=== PATIENT | male | born 1985 | race Caucasian/White ===

== ENCOUNTER 2025-03-27 18:30 | Observation (INO) | payer OTHER, BC, SELFPAY ==
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
--- OUTSIDE RECORDS SUMMARY | 2025-03-27 18:32 | XMS_ITS | Clinical Summary ---
Author Organization [facility] Address [address] [place] [id number] Care Team Providers Care Political Science Research Assistant Name Role Phone None Primary Care Provider Unavailabl e Allergies Active Allergy Reactions Criticality Noted Date Comments Sulfa (Sulfonamide Antibiotics) Other - Describe In Comment Field Medium 02/05/2018 Skin turns white and crusty, then sheds Medications etodolac (LODINE) 200 mg capsule Take 1 capsule by mouth 2 times daily if needed. 0 8 Active multivitamin (MVI) tablet Take 1 tablet by mouth once daily. 0 8 Active methocarbamol (ROBAXIN) 500 mg tablet Take 1 tablet by mouth once daily in the evening. 0 8 Active buPROPion (WELLBUTRIN XL) 300 mg Extended-Release tablet Take 1 tablet by mouth once daily. 0 8 Active prazosin (MINIPRESS) 2 mg capsule Take 1 capsule by mouth at bedtime. 0 8 Active cholecalciferol (VITAMIN D) 1,000 unit capsule Take 1 capsule by mouth once daily. 0 8 Active sildenafil citrate (VIAGRA) 100 mg tablet Take 1 tablet by mouth once daily if needed for Erectile Dysfunction. Take 30min to 4 hours before sexual activity. Max 100mg/24hr. 10 tablet 11 8 Active diazePAM (VALIUM) 5 mg tabletIndications: Consultation for sterilization 30-60 mins before before procedure 1 tablet 9 Active Active Problems No known active problems Immunizations Immunization Administration Dates Next Due Tdap 04/14/2016 Social History Tobacco Use Types Packs/Day Years Used Date Smoking Tobacco: Never Smokeless Tobacco: Never Tobacco Cessation:Counseling Given: Yes Alcohol Use Standard Drinks/Week Comments Yes 2 (1 standard drink = 0.6 oz pur e alcohol) PHQ-2 Answer Date Recorded PHQ-2 Score 2 03/08/2019 Sex and Gender Information Value Date Recorded Sex Assigned at Not on file Legal Sex Male 5:22 AM [employer] Gender Identity Not on file Sexual Orientation Not on file Obstetrics History Last Filed Vital Signs Vital Sign Reading Time Taken Comments Blood Pressure 124/68 05/03/2019 3:36 PM CDT Pulse 95 03/16/2023 9:30 PM CDT Temperature 36.7 C (98.1 F) 03/16/2023 9:30 PM CDT Respiratory Rate 16 03/16/2023 9:30 PM CDT Oxygen Saturation 97% 03/16/2023 9:30 PM CDT Inhaled Oxygen Concentration - - Weight 121.7 kg (268 lb 4.8 oz) 03/16/2023 9:30 PM CDT Height 188 cm (6' 2) 03/16/2023 9:30 PM CDT Body Mass Index 34.45 03/16/2023 9:30 PM CDT Plan of Treatment Health Maintenance Due Date Last Done Comments HIV for age 15-65 1998 Hepatitis C screening for age 18-79 2001 Hepatitis B series for 19+ (1 of 3 - 19+ 3-dose series) 2002 Lipids for age 35-44 2018 Depression screening for age 12+ 03/08/2020 03/08/2019, 02/05/2018 BMI (ht and wt on same day) for age 18+ 05/03/2020 05/03/2019, 04/05/2019, 03/08/2019, Additional history exists COVID-19 vaccine series ( season) 2024 Influenza Vaccine (#1) 2025 Tetanus booster 04/14/2026 04/14/2016 Pneumococcal series for age 6-49 Aged Out No longer eligible based on patient's age to complete this topic Care Teams Political Science Research Assistant Relationship Specialty Start Date End Date None . PCP - General 03/16/23
[2025-03-27 18:48] VITALS: BP 142/80; PULSE 84; RESP 20; TEMP 36.4; O2SAT 99; BMI 33.6
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
[2025-03-27] MEDS: IBUPROFEN 200 MG TABLET 600 MG PO (19:31)
--- OUTSIDE RECORDS SUMMARY | 2025-03-27 20:04 | XMS_ITS | Continuity of Care Document ---
Author Name [facility] Organization [facility] Care Team Providers Care Automotive Heavy Mechanic Name Role Phone [facility] Unavailable Unavailable Problems Combined list of problems from Department of Defense and Veterans Affairs facilities. It does not include entries that were removed or entered in error. Problem Status Onset Date Problem Type Date of Resolution Comments Source Exposure to potentially hazardous substance ([facility] [id number]) Active 10/18/19 24 Condition Oct 18, 2023 Entered By: REFUGIO BANDA Comment: [facility] BRANDY Documentation Initiative [facility] Sacrococcygeal disorders, not elsewhere classified Inactive 09/02/19 17 Condition [facility] Low back pain Inactive 07/21/20 16 Condition [facility] Bilateral foot joint pain Active Condition [facility] Bilateral knee pain Active Condition [facility] Cervical pain Active Condition [facility] Depression ([facility] [id number]) Active Condition [facility] GERD - Gastro-Esophageal Reflux Disease ([facility] [id number]) Active Condition [facility] H/O: vasectomy Active Condition [facility] History of male erectile disorder Active Condition [facility] Low back pain Active Condition [facility] OIF EXPOSURE TO BURN PIT SMOKE Active Condition [facility] OIF EXPOSURE TO DEPLETED URANIUM Active Condition [facility] OIF EXPOSURE TO LYRIC-8 FUEL Active Condition [facility] OIF EXPOSURE TO SANDSTORMS AND DUSTSTORMS Active Condition [facility] PTSD - Post-traumatic stress disorder Active Condition [facility] Screening for other specified conditions (ICD-9-CM V82.89) Active Condition [facility] ([facility]) Shoulder: arthralgia * (ICD-9-CM 719.41) Active Condition [facility] ([facility]) joint pain, localized in the knee Active Condition [facility] TENSION-TYPE HEADACHE Inactive Condition [facility] joint pain in both knees Active Condition DoD NO PSYCHIATRIC DIAGNOSIS ON AXIS III Active Condition [facility] NO PSYCHIATRIC DIAGNOSIS ON AXIS II Active Condition [facility] visit for: services physical Active Condition [facility] ARTHROPATHY SHOULDER REGION Active Condition [facility] DoD SHOULDER SPRAIN Inactive Condition SHOULDER SPRA IN DoD Diagnosis: ICD-10-CM K21.9 Gastro-esophageal reflux disease without esophagitis Active Diagnosis [facility] Medications Combined list of outpatient medications from [facility] and [facility] facilities.Medications provided include 1) outpatient medications from the last 15 months, and 2) patient-reported medications. Medication Details Route Status Patient Instructions Prescription Expires Prescription Number Last Dispense Date Ordering Provider Order Date Order Qty Source BUPROPION HCL 150MG 24HR TAB,SA TAKE THREE TABLETS BY MOUTH EVERY MORNING FOR PTSD ORAL 01/25/2025 [id number] [facility] [address] [facility] CHOLECALCIF MAREK 25MCG (1,000UNIT) TAB TAKE TWO TABLETS BY MOUTH EVERY DAY ORAL ACTIVE SOTOHIRAL Castro [address] [facility] MARINE LIPID (FISH OIL) CAP,ORAL TAKE BY MOUTH EVERY DAY ORAL ACTIVE SOTOHIRAL 2016 [facility] MULTIVITAMI NS CAP/TAB TAKE ONE TABLET BY MOUTH EVERY DAY ORAL ACTIVE SOTOHIRAL [facility] [address] [facility] OMEPRAZOLE 20MG CAP,EC TAKE ONE CAPSULE BY MOUTH EVERY DAY ON AN EMPTY STOMACH, AT LEAST 30 MINUTES PRIOR TO A MEAL ORAL 01/25/2025 [id number] [facility] [address] [facility] PRAZOSIN HCL 2MG CAP TAKE TWO CAPSULES BY MOUTH AT BEDTIME FOR NIGHTMAR ES, NIGHTSWE ATS ORAL 01/25/2025 [id number] ZONIALILIAN PENA [address] [facility] SILDENAFIL CITRATE 100MG TAB TAKE ONE TABLET BY MOUTH NEEDED FOR ERECTION -TAKE 1 HOUR BEFORE ANTICIPA BALDEMAR SEXUAL ACTIVITY ORAL 01/25/2025 [id number] LILIAN BRAR [address] [facility] Allergies, Adverse Reactions, Alerts Combined list of allergies from [facility] and [facility] facilities. It does not include entries that were removed or entered in error. Substance Category Reaction Severity Reaction type Status Date Reported Comments Source SULFA (SULFONAMI DE ANTIBIOTIC S) {Cla } Drug allergy (disorder) Skin irritation active 6 [facility] [place] SULFA DRUGS Propensity to adverse reactions to drug (finding) active 7 [facility] Immunizations Combined list of available immunizations from the Department of Defense and Veterans Affairs facilities. Immunization Series Date Given Administered By Site Reaction Lot Number CVX Code Drug Senior Living Advisor Status Comments Source COVID-19 (MODERNA), MRNA, LNP-S, PF, 100 MCG/0.5 ML DOSE [address] [facility] COVID-19 (MODERNA), MRNA, LNP-S, PF, 100 MCG/0.5 ML DOSE 1 [address] [facility] INFLUENZA, SEASONAL, INJECTABLE 2017 141 complet ed [facility] TDAP 2017 115 complet [facility] INFLUENZA, SEASONAL, INJECTABLE [address] [facility] anthrax vaccine 4 2015 [id number] [employer] [place] ([facility]) complet ed anthrax vaccine [facility] hepatitis B vaccine, adult dosage 4 2015 [id number] SmithKline (SKB) complet ed hepatitis B vaccine, adult dosage [facility] typhoid Vi capsular polysaccharid e vaccine 1 2015 [id number] Sanofi Pasteur (PMC) complet ed typhoid Vi capsular polysacch aride vaccine [facility] Influenza, seasonal, injectable, preservative free 1 2015 [id number] 140 Sanofi Pasteur (PMC) complet ed Influenza , seasonal, injectabl e, preservat kimberly free DoD TDAP 2015 115 complet ed HISTORICA L INFORMATI ON - FROM OTHER REGISTRY, [facility] measles, mumps and rubella virus vaccine 2 2015 [id number] SmithKline (SKB) complet ed measles, mumps and rubella virus vaccine DoD varicella virus vaccine 1 2015 [id number] 21 Unknown (UNK) comple t ed varicella virus vaccine [facility] Influenza, seasonal, injectable, preservative free 1 2014 [id number] 140 [employer] (CS) complet ed Influenza , seasonal, injectabl e, preservat kimberly free DoD Influenza, seasonal, injectable, preservative free 1 2013 [id number] 140 Novartis itravel. (NOV) complet ed Influenza , seasonal, injectabl e, preservat kimberly free DoD Influenza, seasonal, injectable, preservative free 1 2012 [id number] 140 Unknown (UNK) comple t ed Influenza , seasonal, injectabl e, preservat kimberly free DoD Influenza, seasonal, injectable, preservative free 1 2011 [id number] [facility] BetterWorks (Closed)apies, Inc. (CSL) complet ed Influenza , seasonal, injectabl e, preservat kimberly free DoD tetanus toxoid, reduced diphtheria toxoid, and acellular pertu is vaccine, adsorbed 1 2011 [id number] 115 Unknown (UNK) complet ed tetanus toxoid, reduced diphtheri a toxoid, and acellular pertussis vaccine, adsorbed DoD Influenza, seasonal, injectable 1 2010 [id number] 141 Sanofi Pasteur (PMC) complet ed Influenza , seasonal, injectabl e DoD Novel influenza-H1N 1-09, injectable 1 2009 [id number] 127 Nouveaux Riche. (NOV) complet ed Novel influenza -Z1G3-32, injectabl e DoD Novel influenza-H1N 1-09, injectable 1 2009 [id number] 127 Unknown (UNK) complet ed Novel influenza -Z2V3-69, injectabl e DoD influenza virus vaccine, live, attenuated, for intranasal use 1 2008 [id number] 111 MedImmune, Inc. (MED) complet ed influenza virus vaccine, live, attenuate d, for intranasa l use DoD influenza virus vaccine, split virus (incl. purified surface antigen)-reti red CODE 1 2008 [id number] 15 [facility] (SKB) complet ed influenza virus vaccine, split virus (incl. purified surface antigen)- retired CODE DoD influenza virus vaccine, live, attenuated, for intranasal use 1 2006 [id number] 111 MedIInuvo, Inc. (MED) complet ed influenza virus vaccine, live, attenuate d, for intranasa l use DoD anthrax vaccine 3 2006 [id number] 24 [employer] [place] ([facility]) complet ed anthrax vaccine DoD anthrax vaccine 2 2006 [id number] 24 Unknown (UNK) comple t ed anthrax vaccine DoD influenza virus vaccine, split virus (incl. purified surface antigen)-reti red CODE 1 2005 UNK 15 Unknown (UNK) comple t ed influenza virus vaccine, split virus (incl. purified surface antigen)- retired CODE DoD vaccinia (smallpox) vaccine 1 2005 [id number] 75 Perea (AB) complet ed vaccinia (smallpox ) vaccine DoD anthrax vaccine 1 2005 [id number] 24 [employer] [place] ([facility]) complet ed anthrax vaccine DoD typhoid Vi capsular polysaccharid e vaccine 1 [id number] Sanofi Pasteur ([facility]) complet ed typhoid Vi capsular polysacch aride vaccine DoD hepatitis A vaccine, adult dosage 2 2004 [id number] 52 Unknown (UNK) comple t ed hepatitis A vaccine, adult dosage DoD hepatitis B vaccine, adult dosage 3 2004 [id number] 43 Unknown (UNK) comple t ed hepatitis B vaccine, adult dosage DoD influenza virus vaccine, live, attenuated, for intranasal use 1 2004 [id number] 111 Unknown (UNK) comple t ed influenza virus vaccine, live, attenuate d, for intranasa l use DoD hepatitis B vaccine, adult dosage 2 2004 [id number] 43 Unknown (UNK) comple t ed hepatitis B vaccine, adult dosage DoD hepatitis B vaccine, pediatric or pediatric/ado lescent dosage 1 2004 TWIN/AH [id number] 08 Unknown (UNK) complet ed hepatitis B vaccine, pediatric or pediatric /adolesce nt dosage DoD hepatitis A vaccine, adult dosage 1 2004 TWIN/AH ABB 52 Unknown (UNK) complet ed hepatitis A vaccine, adult dosage DoD influenza virus vaccine, split virus (incl. purified surface antigen)-reti red CODE 1 2002 [id number] 15 Sanofi Pasteur ([facility]) complet ed influenza virus vaccine, split virus (incl. purified surface antigen)- retired CODE DoD influenza virus vaccine, split virus (incl. purified surface antigen)-reti red CODE 0 2001 [id number] 15 Dioni (ELIZABETH) complet ed influenza virus vaccine, split virus (incl. purified surface antigen)- retired CODE DoD measles, mumps and rubella virus vaccine 0 2001 [id number] 03 Unknown (UNK) comple t ed measles, mumps and rubella virus vaccine DoD tetanus and diphtheria toxoids, adsorbed, preservative free, for adult use (2 Lf of tetanus toxoid and 2 Lf of diphtheria toxoid) 0 2001 [id number] 09 Unknown (UNK) comple t ed tetanus and diphtheri a toxoids, adsorbed, preservat kimberly free, for adult use (2 Lf of tetanus toxoid and 2 Lf of diphtheri a toxoid) DoD poliovirus vaccine, inactivated 0 2001 [id number] 10 Unknown (UNK) comple t ed polioviru s vaccine, inactivat ed DoD meningococcal polysaccharid e vaccine (MPSV4) 0 2001 [id number] 32 Unknown (UNK) comple t ed meningoco ccal polysacch aride vaccine (MPSV4) DoD Results Combined list of recent chemistry, hematology and other laboratory results from Department of Defense and Veterans Affairs, ranging from 15 months to all on record, depending upon the facility. Order Name Results Value Reference Range Date Interpretation Specimen Comments Source HEMOGLOBI N A1C HEMOGLOBIN A1C/HEMOGLO BIN.TOTAL IN BLOOD 5.4 4.0 - 6.0 01/24 Specimen Type: BLOOD Comment: Values obtained from A1C measurement s can vary. For typical A1C assays, a reported value of 7.0 could actually be between 6.7 and 7.3 if measured by a reference method. A reported value of 9.0 could actually be between 8.7 and 9.3. Ref: http://www. ngsp.org/[place] Pdata.asp Ordering Provider: OSWALD BRAR Report Released Date/Time: December 16, 2022 12:33 PM Reporting Lab: [facility] [phone] Performing Lab: [facility] [address] [place] [facility] BASIC METABOLIC PANEL+MG CREATININE [MASS/VOLUM E] IN SERUM OR PLASMA 1.0 mg/dL 0.7 - 1.2 01/24 Specimen Type: PLASMA No comment entered. Ordering Provider: OSWALD BRAR Report Released Date/Time: December 16, 2022 12:33 PM Reporting Lab: [facility] [phone] Performing Lab: [facility] [address] [place] [facility] BASIC METABOLIC PANEL+MG UREA NITROGEN [MASS/VOLUM E] IN SERUM OR PLASMA 18 mg/dL 8 - 26 01/24 Specimen Type: PLASMA No comment entered. Ordering Provider: OSWALD BRAR Report Released Date/Time: December 16, 2022 12:33 PM Reporting Lab: [facility] [phone] Performing Lab: [facility] [address] [place] [facility] BASIC METABOLIC PANEL+MG GLUCOSE [MASS/VOLUM E] IN SERUM OR PLASMA 76 mg/dL 70 - 100 01/24 Specimen Type: PLASMA No comment entered. Ordering Provider: OSWALD BRAR Report Released Date/Time: December 16, 2022 12:33 PM Reporting Lab: [facility] [address] Performing Lab: [facility] [address] [place] [facility] BASIC METABOLIC PANEL+MG SODIUM [MOLES/VOLU ME] IN SERUM OR PLASMA 140 mmol/L 136 - 145 01/24 Specimen Type: PLASMA No comment entered. Ordering Provider: OSWALD BRAR Report Released Date/Time: December 16, 2022 12:33 PM Reporting Lab: [facility] [phone] Performing Lab: [facility] [address] [place] [facility] BASIC METABOLIC PANEL+MG POTASSIUM [MOLES/VOLU ME] IN SERUM OR PLASMA 3.8 mmol/L 3.5 - 5.1 01/24 Specimen Type: PLASMA No comment entered. Ordering Provider: OSWALD BRAR Report Released Date/Time: December 16, 2022 12:33 PM Reporting Lab: [facility] [address] Performing Lab: [facility] [address] [place] [facility] BASIC METABOLIC PANEL+MG CHLORIDE [MOLES/VOLU ME] IN SERUM OR PLASMA 103 mmol/L 98 - 107 01/24 Specimen Type: PLASMA No comment entered. Ordering Provider: OSWALD BRAR Report Released Date/Time: December 16, 2022 12:33 PM Reporting Lab: [facility] [phone] Performing Lab: [facility] [address] [place] [facility] BASIC METABOLIC PANEL+MG CARBON DIOXIDE, TOTAL [MOLES/VOLU ME] IN SERUM OR PLASMA 29 mmol/L 22 - 29 01/24 Specimen Type: PLASMA No comment entered. Ordering Provider: OSWALD BRAR Report Released Date/Time: December 16, 2022 12:33 PM Reporting Lab: [facility] [address] Performing Lab: [facility] [address] [place] [facility] BASIC METABOLIC PANEL+MG CALCIUM [MASS/VOLUM E] IN SERUM OR PLASMA 10.1 mg/dL 8.4 - 10.2 01/24 Specimen Type: PLASMA No comment entered. Ordering Provider: OSWALD BRAR Report Released Date/Time: December 16, 2022 12:33 PM Reporting Lab: [facility] [address] Performing Lab: [facility] [address] [place] [facility] BASIC METABOLIC PANEL+MG MAGNESIUM [MASS/VOLUM E] IN SERUM OR PLASMA 2.4 mg/dL 1.6 - 2.6 01/24 Specimen Type: PLASMA No comment entered. Ordering Provider: OSWALD BRAR Report Released Date/Time: December 16, 2022 12:33 PM Reporting Lab: [facility] [address] Performing Lab: [facility] [address] [place] [facility] BASIC METABOLIC PANEL+MG ANION GAP IN SERUM OR PLASMA 8 mmol/L 5 - 15 01/24 Specimen Type: PLASMA No comment entered. Ordering Provider: OSWALD BRAR Report Released Date/Time: December 16, 2022 12:33 PM Reporting Lab: [facility] [phone] Performing Lab: [facility] [address] [place] [facility] BASIC METABOLIC PANEL+MG GLOMERULAR FILTRATION RATE/1.73 SQ M.PREDICTED [VOLUME RATE/AREA] IN SERUM, PLASMA OR BLOOD BY CREATININE- BASED FORMULA (CKD-EPI 2020) >90 60 01/24 Specimen Type: PLASMA No comment entered. Ordering Provider: OSWALD BRAR Report Released Date/Time: December 16, 2022 12:33 PM Reporting Lab: [facility] [address] Performing Lab: [facility] [address] [place] [facility] LIPID PANEL,NON -FASTING CHOLESTEROL [MASS/VOLUM E] IN SERUM OR PLASMA 210 mg/dL <199 - 199 01/24 H Specimen Type: PLASMA No comment entered. Ordering Provider: OSWALD BRAR Report Released Date/Time: December 16, 2022 12:33 PM Reporting Lab: [facility] [address] Performing Lab: [facility] [address] [place] [facility] LIPID PANEL,NON -FASTING CHOLESTEROL IN HDL [MASS/VOLUM E] IN SERUM OR PLASMA 37 mg/dL 40 01/24 L Specimen Type: PLASMA No comment entered. Ordering Provider: OSWALD BRAR Report Released Date/Time: December 16, 2022 12:33 PM Reporting Lab: [facility] [address] Performing Lab: [facility] [address] [place] [facility] LIPID PANEL,NON -FASTING CHOLESTEROL IN LDL [MASS/VOLUM E] IN SERUM OR PLASMA BY CALCULATION 134 mg/dL <99 - 99 01/24 H Specimen Type: PLASMA No comment entered. Ordering Provider: OSWALD BRAR Report Released Date/Time: December 16, 2022 12:33 PM Reporting Lab: [facility] [address] Performing Lab: [facility] [address] [place] [facility] LIPID PANEL,NON -FASTING CHOLESTEROL IN VLDL [MASS/VOLUM E] IN SERUM OR PLASMA BY CALCULATION 39 mg/dL <29 - 29 06/13 /2024 H Specimen Type: PLASMA No comment entered. Ordering Provider: OSWALD BRAR Report Released Date/Time: December 16, 2022 12:33 PM Reporting Lab: [facility] [address] Performing Lab: [facility] [address] [place] [facility] LIPID PANEL,NON -FASTING CHOLESTEROL NON HDL [MASS/VOLUM E] IN SERUM OR PLASMA 173 mg/dL <129 - 129 01/24 H Specimen Type: PLASMA No comment entered. Ordering Provider: OSWALD BRAR Report Released Date/Time: December 16, 2022 12:33 PM Reporting Lab: [facility] [address] Performing Lab: [facility] [address] [place] [facility] LIPID PANEL,NON -FASTING TRIGLYCERID E [MASS/VOLUM E] IN SERUM OR PLASMA 196 mg/dL <149 - 149 01/24 H Specimen Type: PLASMA No comment entered. Ordering Provider: OSWALD BRAR Report Released Date/Time: December 16, 2022 12:33 PM Reporting Lab: [facility] [address] Performing Lab: [facility] [address] [place] [facility] Encounters Combined list of: 1) Encounters from Department of Veterans Affairs facilities going backup to the last 18 months, not all [place] inpatient encounters are included; 2) Encounters from the Department of Defense facilities going backup to 280 months. Location Location Details Encounter Type Encounter Number Reason For Visit Attending Provider ADM Date DC Date Status Disposition Source Theater Facility OUTPATIENT [id number] 02/19 Released w/o Limitations [facility] Facility OUTPATIENT [id number] 04/06 Released w/o Limitations [facility] OUTPATIENT [id number] 05/07 Released with Work/Duty Limitations Theater Facilit y [facility] OUTPATIENT [id number] HINA VOGEL 06/14 Released w/o Limitations [facility] [place] OUTPATIENT [id number] l knee x2yrs GIANLUCA BLAKE 10/09 Released w/o Limitations [facility] [place] [place] OUTPATIENT [id number] migrain e x4days/ redo consult on left knee GIANLUCA BLAKE 02/11 Released w/o Limitations [facility] [place]) [facility] ) OUTPATIENT [id number] Notes Entered by: Titus BONILLA 28 Apr 2016 1034 ------- ------- ------- ------- -- CALDERON LE 04/28 Released w/o Limitations [facility] [place] [address]) OUTPATIENT [id number] Notes Entered by: Delfin TRAN 03 May 2016 0738 ------- ------- ------- ------- -- PAULA MCKAY 05/03 Released w/o Limitations [place]([facility] [address]) [place] OUTPATIENT [id number] Notes Entered by: LUIS MANUEL POWELL 03 May 2016 1423 ------- ------- ------- ------- -- [facility]/D EPLOYME NT LUIS MANUEL POWELL 05/03 Released w/o Limitations [place] ) OUTPATIENT [id number] Notes Entered by: LIANA MASSEY 05 May 2016 1141 ------- ------- ------- ------- -- CUT RIGHT ARM ON GLASS TYRONE ANDRADE 05/05 Released w/o Limitations [place] TELE CONSULT [id number] Notes Entered by: CÉSAR SOUZA 13 May 2016 0806 ------- ------- ------- ------- -- ED Dischar ge/ Service Date- 12 May 2016 / SUTURE REMOVAL GRACY KEYES 05/13 [facility]) Theater Facility OUTPATIENT [id number] Theater Provider 07/17 Released w/o Limitations Theater Facilit y Theater Facility OUTPATIENT [id number] Theater Provider 09/01 Released w/o Limitations Theater Facilit y [place]([facility] [address]) OUTPATIENT [id number] Notes Entered by: CHENG HUTCHINS 16 Feb 2017 1432 ------- ------- ------- ------- -- PAULA BRENNER 02/16 Released w/o Limitations [place]([facility] [address]) [place]) OUTPATIENT [id number] Notes Entered by: JUAN MAHARAJ 16 Feb 2017 1447 ------- ------- ------- ------- -- CIPRIANO FAUSTIN 02/16 Released w/o Limitations [place]) [place] [address]) OUTPATIENT [id number] Notes Entered by: PENNY CASTILLO 17 Feb 2017 0800 ------- ------- ------- ------- -- KAREN/ P/341 PAULA WILKERSON 02/17 Released w/o Limitations [place]([facility] Bldg [address]) [place] [facility] Outpatient Encounter [id number] 12/19 RITIKAAP OLIS [facility] [place] [facility] Outpatient Encounter [id number] [facility] O/P EST HI 40 MIN [id number] Diagnos is: ICD-10- CM K21.9 Gastro- esophag eal reflux disease without esophag itis Fan BRAR 01/24 [facility] [place] [facility] Outpatient Encounter [id number] 12/31 [facility] Procedures Combined list of: 1) Procedures from Department of [facility] Affairs facilities going back [facility] to [facility], not all [place] non-surgical procedures are included; 2) All procedures from the Department of Defense facilities. Procedure Procedure Type Code Date Perfomer Comments Sourc e FITTING OF SPECTACLES, EXCEPT FOR APHAKIA; MONOFOCAL 03/22/20 02 DoD AUDIOMETRIC TESTING OF GROUPS 02/17/20 17 DoD SIMPLE REPAIR OF SUPERFICIAL WOUNDS OF SCALP, NECK, AXILLAE, EXTERNAL GENITALIA, TRUNK AND/OR EXTREMITIES (INCLUDING HANDS AND FEET); 2.5 CM OR LESS 05/05/20 16 [facility] SCREENING TEST OF VISUAL ACUITY, QUANTITATIVE, BILATERAL 05/03/20 16 [facility] ANTHRAX VACCINE, FOR SUBCUTANEOUS OR INTRAMUSCULAR USE 05/02/20 16 [facility] POSTOPERATIVE FOLLOW-UP VISIT, NORMALLY INCLUDED IN THE SURGICAL PACKAGE, INDICATE THAT EVALUATION & MANAGEMENT SERVICE WAS PERFORMED DURING A POSTOPERATIVE PERIOD REASON RELATED ORIGINAL PROCEDURE 05/12/20 16 [facility] OPHTHALMOLOGICAL SERVICES: MEDICAL EXAMINATION AND EVALUATION WITH INITIATION OF DIAGNOSTIC AND TREATMENT PROGRAM; COMPREHENSIVE, NEW PATIENT, 1 OR MORE VISITS 04/28/20 16 [facility] SCREENING TEST OF VISUAL ACUITY, QUANTITATIVE, BILATERAL 09/04/19 08 [facility] PSYCHOLOGICAL TSTING (INCL PSYCHODIAG ASSESSMNT, EMOTITY, INTELLECTUAL ABILITIES, PERSONALITY &PSYCHOPATHOLOGY, EG, MMPI), ADMINISTERED COMPUTER, W QUALIFIED HEALTH AMMONIA OPERATOR INTERPRET &RPT 06/14/20 07 [facility] COLLECTION OF VENOUS BLOOD BY VENIPUNCTURE 06/08/20 07 [facility] COLLECTION OF VENOUS BLOOD BY VENIPUNCTURE 01/24/20 06 [facility] TYPHOID VACCINE, CAPSULAR POLYSACCHARIDE (VICPS), FOR INTRAMUSCULAR USE 01/18/20 06 [facility] BLOOD PRESSURE MEASURED (CKD)(DM) 11/05/19 06 [facility] PATIENT EDUCATION, NOT OTHERWISE CLASSIFIED, NON-PHYSICIAN PROVIDER, INDIVIDUAL, PER SESSION 09/13/19 06 [facility] INDIVIDUAL PSYCHOTHERAPY, INSIGHT ORIENTED, BEHAVIOR MODIFYING AND/OR SUPPORTIVE, IN AN OFFICE OR OUTPATIENT FACILITY, APPROXIMATELY 20 TO 30 MINUTES SCEX-BP-BPYB WITH THE PATIENT 05/06/20 05 [facility] EDUCATIONAL SUPPLIES, SUCH BOOKS, TAPES, AND PAMPHLETS, FOR THE PATIENT'S EDUCATION AT COST TO PHYSICIAN OR OTHER QUALIFIED HEALTH AMMONIA OPERATOR 05/06/20 05 [facility] PREPARATION OF REPORT OF PATIENT'S PSYCHIATRIC STATUS, HISTORY, TREATMENT, OR PROGRESS (OTHER THAN FOR LEGAL OR CONSULTATIVE PURPOSES) FOR OTHER INDIVIDUALS, AGENCIES, OR INSURANCE CARRIERS 05/06/20 05 [facility] DETERMINATION OF REFRACTIVE STATE 04/29/20 05 [facility] SUPP &MATERIAL (EXCEPT SPECTACLE),PROVID,TH E PHYS/OTH QUALIFIED HEALTH AMMONIA OPERATOR OVER &ABOVE THOSE USUALLY INCLD W THE OFFICE VISIT/OTH SER RENDERED (LIST DRUG,TRAYS,SUPP,OR MATERIAL PROVID) 04/28/20 05 [facility] PATIENT EDUCATION, NOT OTHERWISE CLASSIFIED, NON-PHYSICIAN PROVIDER, INDIVIDUAL, PER SESSION 04/25/20 05 [facility] HEPATITIS A AND HEPATITIS B VACCINE (HEPA-HEPB), ADULT DOSAGE, FOR INTRAMUSCULAR USE 11/24/19 05 [facility] GROUP PSYCHOTHERAPY (OTHER THAN OF A MULTIPLE-FAMILY GROUP) 11/23/19 05 [facility] Audiometry Group Testing Audiometry Group Testing [id number] 02/17/20 17 ANUJ OSORIO DoD Repair Of Superficial Wound Upper Extremities .1 to 2.5 cm Repair Of Superficial Wound Upper Extremities .1 to 2.5 cm [id number] 05/05/20 16 TYRONE ANDRADE 3 sutures to right hand 4th digit, 2 sutures to the medial aspect of the right forearm [facility] Screening Test Of Visual Acuity, Quantitative, Bilateral Screening Test Of Visual Acuity, Quantitative, Bilateral [id number] 05/03/20 16 LUIS MANUEL POWELL [facility] Spectacles Services Fitting Monofocals (Not For Aphakia) Spectacles Services Fitting Monofocals (Not For Aphakia) [id number] 04/28/20 16 CALDERON DARDEN [facility] Determination Of Refractive State Determination Of Refractive State [id number] 04/28/20 16 CALDERON DARDEN [facility] Ophthalmological New Patient Start Comprehensive Care Ophthalmological New Patient Start Comprehensive Care [id number] 04/28/20 16 ADELSOCALDERON Balbuena [facility] Psychologic Testing And Report Administered By Computer Psychologic Testing And Report Administered By Computer [id number] 06/14/20 07 HINA KAUR Psychiatric Evaluation Comprehensive Examination Psychiatric Evaluation Comprehensive Examination [id number] 06/14/20 07 HINA KAUR [facility] Social History Combined list of available smoking, tobacco, and other social history from Department of Defense and Veterans Affairs facilities. Social History Type Response Date Comment Sour e Tobacco smoking status NHIS VA-TOBACCO NEVER USED [facility] History of tobacco use RI-TOBACCO NEVER USED 12/16/2022 [facility] History of tobacco use VA-TOBACCO NEVER USED 08/21/2020 [facility] History of tobacco use RI-TOBACCO NEVER USED 05/10/2018 [facility] History of tobacco use LIFETIME NON-TOBA COOK JELLY USER 08/01/2017 [facility] History of tobacco use LIFETIME NON-USER OF TOBACCO 01/15/2008 [facility] This section is an empty social history section. DoD
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
[2025-03-27 22:42] VITALS: BP 131/94; PULSE 73; RESP 20; TEMP 36.6; O2SAT 94; BMI 33.6; BMI 33.7
[2025-03-27] MEDS: ACETAMINOPHEN 325 MG TABLET 975 MG PO (22:49)
[2025-03-27 23:00] VITALS: PULSE 73
[2025-03-27 23:37] VITALS: BP 138/94; PULSE 88; RESP 18; TEMP 36.6; O2SAT 94
[2025-03-28 03:30] VITALS: PULSE 61
[2025-03-28 03:37] VITALS: BP 113/75; PULSE 61; RESP 16; TEMP 36.6; O2SAT 94
[2025-03-28] MEDS: IBUPROFEN 400 MG TABLET PO (06:02)
--- NOTE | 2025-03-28 06:22 | PC.NURSE ---
Patient admitted to the unit at 2150 with spouse at bedside. Rates pain 2-5/10. PRN Tylenol and ibuprofen for relief. Active ice offered but declined. Sully collar in place. At 0130 patient was found to have removed Sully collar. Collar placed back on and patient educated on risks of removing collar. Neuro unremarkable. NPO since 0000. Independent in room. Denies N/V/CP.
[2025-03-28 06:51] LABS: Chloride* 104 mmol/L (96-114); Potassium* 3.8 mmol/L (3.6-5.1); Sodium* 141 mmol/L (135-149)
[2025-03-28 06:54] LABS: Anion Gap 10 mEq/L (7-15); Blood Urea Nitrogen* 21 mg/dL (5-24); Calcium* 9.4 mg/dL (8.4-10.6); Carbon Dioxide* 27 mmol/L (20-32); Creatinine* 1.1 mg/dL (0.5-1.5); Est. Creatinine Clearance* 102.75; Estimated Glomerular Filt Rate 86 ml/min; Glucose* 93 mg/dL (60-115)
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
[2025-03-28 08:54] VITALS: BP 118/76; PULSE 75; RESP 16; TEMP 36.5; O2SAT 95
[2025-03-28] MEDS: SODIUM CHLORIDE 0.9 % (FLUSH) 10 ML SYRINGE 5 ML IVF (10:30)
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
[2025-03-28 12:11] VITALS: BP 144/91; PULSE 85; RESP 16; TEMP 36.4; O2SAT 93
[2025-03-28] MEDS: LIDOCAINE 5% PATCH 1 PATCH TRANSDERMA (12:16)
--- NOTE | 2025-03-28 14:35 | PC.NURSE ---
Pt doing well today. VSS. Pain is controlled with lidocaine patch. Pt is up independently, tolerating ambulation well. Pt discharged home at 1420 via children. Pt belongings and discharge instructions signed.
== END 2025-03-28 14:20 | disposition home or self-care (01) ==
LOC: ED 21:47 → MEDSURG 21:51
PROVIDERS: Admitting Provider Student in an Organized Health Care Education/Training Program; Emergency Provider Emergency Medicine; Visit Provider Student in an Organized Health Care Education/Training Program
DX: M54.2 Cervicalgia (principal); V43.52XA Car driver injured in collision with other type car in traffic accident, initial encounter; Z86.59 Personal history of other mental and behavioral disorders
CPT/HCPCS: 36415; 71250; 72125; 72128; 72141; 80048; 99284; 99285; A9270; G0378